=== PATIENT | male | born 1990 | race African-American/Black ===

== ENCOUNTER 2016-06-27 11:54 | Emergency (ER) | payer MEDICAID, OTHER, SELFPAY ==
[~2016-06-27] VITALS: Ht 188 cm; Wt 97.7 kg
[2016-06-27 14:43] VITALS: BP 128/90
[2016-06-27] MEDS ORDERED: ACETAMINOPHEN/CODEINE 300-30 MG TABLET PO ONE (15:00)
== END 2016-06-27 15:19 | disposition home or self-care (01) ==
LOC: EMS 11:56
DX: S63.636A Sprain of interphalangeal joint of right little finger, initial encounter (principal); F17.210 Nicotine dependence, cigarettes, uncomplicated; W23.0XXA Caught, crushed, jammed, or pinched between moving objects, initial encounter; Y93.89 Activity, other specified; Y92.89 Other specified places as the place of occurrence of the external cause; Y99.8 Other external cause status
CPT/HCPCS: 99284; 99406

== ENCOUNTER 2018-01-07 17:36 | Emergency (ER) | payer OTHER ==
[~2018-01-07] VITALS: Ht 188 cm; Wt 109.1 kg
[2018-01-07 17:47] VITALS: BP 135/88
[2018-01-07] MEDS ORDERED: CefTRIAXone SODIUM 1 GM/VIAL IM ONE (20:30)
[2018-01-07] MEDS ORDERED: AZITHROMYCIN 250 MG TABLET PO ONE (20:30)
[2018-01-07] MEDS ORDERED: LIDOCAINE/PF 1% 5 ML VIAL INJ ONE (20:30)
== END 2018-01-07 20:48 | disposition home or self-care (01) ==
LOC: EMS 17:37
DX: N34.2 Other urethritis (principal); F17.210 Nicotine dependence, cigarettes, uncomplicated
CPT/HCPCS: 87491; 87591; 96372; 99283; J0696; J3490

== ENCOUNTER 2019-08-27 13:26 | Emergency (ER) | payer OTHER ==
[~2019-08-27] VITALS: Ht 185.4 cm; Wt 115.9 kg
[2019-08-27 20:47] LABS: APPEARANCE,URINE CLEAR (CLEAR); BILIRUBIN,URINE NEGATIVE (NEGATIVE); GLUCOSE, URINE (UA) NEGATIVE (NEGATIVE); KETONES,URINE NEGATIVE (NEGATIVE); LEUKOCYTE ESTERASE ,URINE NEGATIVE (NEGATIVE); NITRATE,URINE NEGATIVE (NEGATIVE); OCCULT BLOOD,URINE NEGATIVE (NEGATIVE); PH,URINE 6.5 (5.0-8.0); PROTEIN,URINE NEGATIVE (NEGATIVE)
[2019-08-27 21:00] VITALS: BP 133/75
== END 2019-08-27 21:20 | disposition home or self-care (01) ==
LOC: EMS 13:31
DX: N34.2 Other urethritis (principal)
CPT/HCPCS: 87491; 87591

== ENCOUNTER 2020-04-13 10:29 | Emergency (ER) | payer OTHER ==
[~2020-04-13] VITALS: Ht 185.4 cm; Wt 95.5 kg
[2020-04-13 10:33] VITALS: BP 123/80
== END 2020-04-13 11:15 | disposition left against medical advice (07) ==
LOC: EMS 10:29
DX: M25.539 Pain in unspecified wrist (principal); Z53.21 Procedure and treatment not carried out due to patient leaving prior to being seen by health care provider

== ENCOUNTER 2020-12-16 13:59 | Emergency (ER) | payer OTHER ==
[~2020-12-16] VITALS: Ht 188 cm; Wt 104.5 kg
[2020-12-16 14:36] VITALS: BP 132/85
[2020-12-16] MEDS ORDERED: LIDOCAINE/PF 1% 2 ML VIAL IM ONE (15:00)
[2020-12-16] MEDS ORDERED: CefTRIAXone SODIUM 1 GM/VIAL IM ONE (15:00)
== END 2020-12-16 15:49 | disposition home or self-care (01) ==
LOC: EMS 14:10
DX: N34.2 Other urethritis (principal); F17.210 Nicotine dependence, cigarettes, uncomplicated
CPT/HCPCS: 87491; 87591; 96372; 99283; J0696; J3490

== ENCOUNTER 2022-09-29 10:46 | Emergency (ER) | payer OTHER ==
[~2022-09-29] VITALS: Ht 185.4 cm; Wt 113.6 kg
[2022-09-29 10:59] VITALS: BP 119/94; PULSE 92; RESP 18; TEMP 98.6
[2022-09-29] MEDS ORDERED: DOXYCYCLINE HYCLATE 100 MG TABLET PO ONE (11:45)
[2022-09-29] MEDS ORDERED: CefTRIAXone SODIUM 1 GM/VIAL IM ONE (11:45)
[2022-09-29] MEDS ORDERED: LIDOCAINE/PF 1% 2 ML VIAL IM ONE (11:45)
[2022-09-29] MEDS ORDERED: DOXY-354 PO (12:00)
== END 2022-09-29 12:18 | disposition home or self-care (01) ==
LOC: EMS 10:46
DX: N34.2 Other urethritis (principal); F17.210 Nicotine dependence, cigarettes, uncomplicated
CPT/HCPCS: 99283; 87491; 87591; 96372; J0696; J3490

== ENCOUNTER → 2023-08-31 | Emergency (ER) | payer OTHER ==
[~2023-08-31] VITALS: Ht 188 cm; Wt 109.0 kg
[~2023-08-31] MED LIST: DOXY-354 PO
[2023-08-31 12:22] VITALS: TEMP 97.8
[2023-08-31 13:36] LABS: APPEARANCE,URINE CLEAR (CLEAR); BILIRUBIN,URINE NEGATIVE (NEGATIVE); COLOR,URINE LIGHT YELLOW (YELLOW); GLUCOSE, URINE (UA) NEGATIVE (NEGATIVE); KETONES,URINE NEGATIVE (NEGATIVE); LEUKOCYTE ESTERASE ,URINE NEGATIVE (NEGATIVE); NITRATE,URINE NEGATIVE (NEGATIVE); OCCULT BLOOD,URINE NEGATIVE (NEGATIVE); PH,URINE 5.5 (5.0-8.0); PROTEIN,URINE NEGATIVE (NEGATIVE); SPECIFIC GRAVITIY, URINE 1.018 (1.003-1.030); UROBILINOGEN,URINE <=1.0 mg/dL (<=1.0)
[2023-08-31] MEDS: DOXYCYCLINE HYCLATE 100 MG TABLET PO ONE (14:08)
[2023-08-31] MEDS: LIDOCAINE/PF 1% 2 ML VIAL IM ONE (14:09)
[2023-08-31] MEDS: CefTRIAXone SODIUM 1 GM/VIAL IM ONE (14:09)
[2023-08-31 14:15] VITALS: BP 132/84; PULSE 66; RESP 18
== END | disposition still patient (30) ==
LOC: EMS 12:04
DX: N34.2 Other urethritis (principal); R30.9 Painful micturition, unspecified; F17.210 Nicotine dependence, cigarettes, uncomplicated
CPT/HCPCS: 99283; 81003; 87491; 87591; 96372; J0696; J3490